=== PATIENT | female | born 1945 | race Caucasian/White ===

== ENCOUNTER 2021-01-31 14:38 | Emergency (ER) | payer MEDICARE, SELFPAY ==
--- NOTE | ~2021-01-31 | CT_ITS ---
EXAMINATION: CT cervical spine wo con DATE: 01/31/2021 16:34 INDICATION: Cervical pain between the shoulders TECHNIQUE: Computed tomography (CT) of the cervical spine was performed without intravenous contrast. Automated exposure control and iterative reconstruction technique were employed. The dose-length pro duct was 542.22 mGy-cm. COMPARISON: None FINDINGS: Straightening of the normal cervical lordosis. 2 mm anterolisthesis C4 on C5. Vertebral body heights are normal. No fractures. Mild disc height loss at C4-C5 and C7-T1 and moderate disc height loss at C 5-C6 and C6-C7 as well as at multiple levels in the upper thoracic spine. Posterior disc osteophyte c omplexes resulting in minimal to mild central canal stenosis at C5-C6, T1-T2 and T3-T4. Bilateral mod erate multilevel uncovertebral osteoarthritis and severe facet osteoarthritis in the cervical spine w hich contributes to moderate neural foraminal stenosis on the right at C3-C4 and C4-C5 and mild neura l foraminal stenosis at many of the remaining bilateral cervical neural foramina. Cervical soft tissu es are unremarkable. IMPRESSION: 1. Moderate cervical spondylosis. No acute osseous abnormality. Reviewed, dictated and finalized at location A.
--- NOTE | ~2021-01-31 | CT_ITS ---
EXAMINATION: CT brain wo con DATE: 01/31/2021 16:35 INDICATION: Headache TECHNIQUE: Computed tomography (CT) of the head was performed without intravenous contrast. Sagittal and coronal reconstructions were performed. The mA was adjusted according to patient size. Iterative reconstruction technique was employed. The dose-length product was 605.33 mGy-cm. COMPARISON: None FINDINGS: There is high attenuation subarachnoid hematoma involving portions of right sylvian fissure, the supr asellar cistern and prepontine cistern with right-sided predominance. No acute intracranial ischemic infarction or masses identified. Ventricles are normal and symmetric. The orbits, paranasal sinuses a nd mastoid air cells are normal. No fracture. IMPRESSION: 1. Subarachnoid hemorrhage extending from the right sylvian fissure to the suprasellar cistern and bi lateral prepontine cisterns with right-sided predominance. Dr. Villanueva discussed these findings with Dr. Orr at 4:38 PM. Reviewed, dictated and finalized at location A. IMPRESSION: 1. Subarachnoid hemorrhage extending from the right sylvian fissure to the supr asellar cistern and bilateral prepontine cisterns with right-sided predominance . Dr. Villanueva discussed these findings with Dr. Orr at 4:38 PM.
--- NOTE | ~2021-01-31 | CT_ITS ---
EXAMINATION: CTA chest abdomen pelvis DATE: 01/31/2021 16:35 INDICATION: Upper back pain TECHNIQUE: Computed tomographic angiography (CTA) of the chest, abdomen, and pelvis was performed wit hout and with 100 mL Omnipaque-350 intravenous contrast. Volume-rendered 3D-reconstructions of the ao rta and large arteries were constructed by the technologist on a separate workstation. Automated expo sure control and iterative reconstruction technique were employed. The dose-length product was 1380.8 2 mGy-cm. COMPARISON: None FINDINGS: CHEST: Thoracic aorta is normal in caliber with no dissection or significant atherosclerotic disease. Lungs are clear with no suspicious pulmonary nodules, pneumonia, pulmonary edema, pleural effusion or pneum othorax. Heart size is normal. No pericardial effusion. No pathologically enlarged thoracic lymphaden opathy. Moderate thoracic spondylosis. Abdomen and pelvis: Abdominal aorta is normal in caliber with no dissection or significant atherosclerotic disease. Diffu se hepatic steatosis. Cholecystectomy clips at the gallbladder fossa. Spleen, pancreas, bilateral adr enal glands and kidneys are normal. Bowels including the appendix are normal. Bladder is normal. The uterus is not identified and has likely been surgically resected. No free intraperitoneal gas or flui d. No pathologically enlarged abdominal or pelvic lymphadenopathy. 15 degrees lumbar levoscoliosis wi th severe spondylosis. 4 mm anterolisthesis L4 on L5. IMPRESSION: 1. No acute intrathoracic, abdominal or pelvic process. Specifically normal caliber thoracic and abdo kayli aorta with no dissection. 2. Diffuse hepatic steatosis. Reviewed, dictated and finalized at location A. IMPRESSION: 1. No acute intrathoracic, abdominal or pelvic process. Specifically normal antoinette iber thoracic and abdominal aorta with no dissection. 2. Diffuse hepatic steatosis.
[2021-01-31 14:45] VITALS: BP 155/88; PULSE 74; RESP 16; TEMP 36.9; O2SAT 98
--- NOTE | 2021-01-31 14:48 | ED.HA ---
HPI - Headache General Chief Complaint: Headache Stated Complaint: back and head pain Time Seen by Provider: 01/31/21 15:13 Source: patient Mode of arrival: ambulatory Limitations: no limitations History of Present Illness HPI Narrative: 75-year-old woman with a history rheumatoid arthritis comes in today complaining of back and head pain that started last night while she was trying to towel off her back. Patient states that she had an episode of vomiting afterwards. the pain is worse with movement. She states that she has had some long-standing or numbness in the right hand otherwise she has no weakness numbness or radiating pain. She denies falls and injuries. She has had no fever, sore throat cough or cold symptoms, sick contacts, prior similar symptoms, chest pain, abdominal pain, or photophobia. Patient states she takes a baby aspirin every morning; her last dose was yesterday (01/30) morning. MD elicited complaint: headache Onset (ago): hour(s) (17) Onset description: suddenly Location: occipital and neck Severity: severe Quality & Timing: aching and sharp Exacerbating factors: movement of head/neck Relieving factors: rest Context: occurred with exertion/activity Associated symptoms: vomiting Treatments prior to arrival: ibuprofen Related Data Home Medications Medication Instructions Recorded Confirmed alprazolam [Xanax] 0.25 mg PO TID PRN 01/31/21 01/31/21 hydrochlorothiazide 25 mg PO DAILY 01/31/21 01/31/21 meloxicam 15 mg PO DAILY 01/31/21 01/31/21 metoprolol succinate 50 mg PO DAILY 01/31/21 01/31/21 pantoprazole 40 mg PO QAM 01/31/21 01/31/21 venlafaxine 75 mg PO DAILY 01/31/21 01/31/21 Allergies Allergy/AdvReac Type Severity Reaction Status Date / Time No Known Allergies Allergy Verified 01/31/21 15:07 Review of Systems Review of Systems: All systems reviewed & are unremarkable except as noted in HPI and below Constitutional: Constitutional: Denies chills, Denies fever(s) and Denies weakness Eyes: Eyes: Denies change in vision and Denies photophobia ENT: Denies dysphagia, Denies nasal congestion and Denies sore throat Cardiovascular: Cardiovascular: Denies chest pain and Denies radiating jaw, neck or arm pain Respiratory: Respiratory: Denies cough, Denies dyspnea and Denies wheezing Gastrointestinal: Gastrointestinal: Denies abdominal pain, Denies diarrhea, Denies nausea and Reports vomiting Genitourinary: Genitourinary: Denies nocturia and Denies dysuria Musculoskeletal: Musculoskeletal: Reports back pain, Denies arthralgias and Denies joint swelling Integumentary/Breasts: Skin/Breast: Denies pruritus, Denies erythema and Denies rash Neurologic: Denies vertigo, Denies dizziness, Denies syncope and Reports numbness (Rt hand for 3 months) Hematologic/Lymphatic: Hematologic/Lymphatic: Denies easy bleeding and Denies easy bruising Allergic/Immunologic: Allergic/Immunologic: Denies lip swelling and Denies wheezing PMFSH Past Medical History Medical History HTN (hypertension) Migraine Rheumatoid arthritis Surgical History Surgical History History of hysterectomy S/P cholecystectomy Social History Social History (Updated 01/31/21 @ 15:34 by Barrington Orr MD) Smoking status: Current every day smoker Alcohol intake: never Substance use: never Living arrangements: with family Exam Const: General: alert Orientation/consciousness: patient oriented x3 Limitations: no limitations Other: moderate acute distress. HENMT: Head: normal to inspection Ears: external ears normal, TM's normal bilaterally and EAC's normal General nose exam: Normal nares present Face and sinus: normal facial exam Mouth: Yes moist mucous membranes abnormal Throat: posterior oropharynx normal Eyes: Conjunctivae: conjunctivae normal Pupils: Equal, round and reactive pupils presen
--- NOTE | 2021-01-31 15:20 | ECG_ITS ---
Measurements Intervals [place] Rate: 71 P: 19 [place]: 154 QRS: -11 QRSD: 88 T: 22 QT: 396 QTc: 432 Interpretive Statements SINUS RHYTHM BORDERLINE T WAVE ABNORMALITY- ANT/INF LEADS BORDERLINE ECG Electronically Signed On 02-01-2021 10:13:05 CDT by Gadiel Lua D.O.
[2021-01-31] MEDS: ONDANSETRON HCL ODT 4 MG TABLET PO (15:21)
[2021-01-31] MEDS: HYDROcodone/acetaminophen (*CRX) 5-325 MG TABLET 1 TAB PO (15:40)
[2021-01-31 15:48] LABS: Appearance Urine Clear (Clear); Bilirubin Urine Negative (Negative); Blood Urine 1+ (Negative); Glucose Urine UA Negative (Negative); Ketones Urine 1+ (Negative); Leukocyte Esterase Ur Negative LEU/UL (Negative); Nitrate Urine Negative (Negative); Protein Urine Negative (Negative); Urobilinogen Urine 0.2 mg/dL (0.2-1.0)
[2021-01-31 15:48] LABS: Basophils Absolute Auto 0.05 K/mm3 (0.00-0.10); Basophils Percent Auto 0.6 % (0.0-1.0); Eosinophils Absolute Auto 0.09 K/mm3 (0.02-0.50); Eosinophils Percent Auto 1.1 % (1.0-6.0); Hematocrit 41.9 % (35.0-42.0); Hemoglobin 14.5 g/dL (11.7-13.8); Immature Granulocyte Absolute 0.03 K/mm3 (0.00-0.00); Immature Granulocyte Percent A 0.4 % (0.0-0.0); Lymphocytes Absolute Auto 1.81 K/mm3 (1.10-4.50); Lymphocytes Percent Auto 21.9 % (18.0-42.0); Mean Corpuscular HGB Conc 34.6 g/dL (32.0-36.0); Mean Corpuscular Hemoglobin 30.9 pg (27.0-31.0); Mean Corpuscular Volume 89.3 fL (78.0-102.0); Mean Platelet Volume 12.2 fl (9.2-11.8); Monocytes Absolute Auto 0.68 K/mm3 (0.10-0.90); Monocytes Percent Auto 8.2 % (2.0-11.0); Neutrophils Absolute Auto 5.6 K/mm3 (1.7-7.2); Neutrophils Percent Auto 67.8 % (50.0-70.0); Platelet Count Result 172 K/mm3 (150-420); Red Blood Count 4.69 M/mm3 (4.20-5.40); Red Cell Distribution Width 12.9 % (11.6-14.4); White Blood Count 8.3 K/mm3 (4.8-10.8)
[2021-01-31 15:50] LABS: Add Urine Microscopic? YES; Color Urine Light Yellow (Yellow)
[2021-01-31 16:02] LABS: Bacteria Urine Trace /hpf; RBC Urine 0-2 /hpf (0-2); Squamous Epithelial Cell Urine Few /hpf (Few); WBC Urine 0-3 /hpf (0-3)
[2021-01-31 16:02] LABS: INR 1.1; Partial Thromboplastin Time 26.8 SEC (23.90-30.70); Prothrombin Time 11.3 Seconds (9.50-12.10)
[2021-01-31 16:03] LABS: Alanine Aminotransferase 46 U/L (14-59); Albumin Level 3.6 g/dL (3.4-5.0); Alkaline Phosphatase 71 U/L (46-116); Anion Gap 10 mmol/L (8-16); Aspartate Amino Transferase 32 U/L (15-37); Bilirubin,Total 0.9 mg/dL (0.00-1.00); Blood Urea Nitrogen 17 mg/dL (7-18); CRP 0.5 mg/dL (0.0-0.9); Carbon Dioxide 27 mmol/L (21-32); Chloride 104 mmol/L (98-108); Estimated CRCL calculation 52 ml/min; Estimated Glomerular Filt Rate > 60; Glucose 99 mg/dL (70-99); Osmolality Calculated 293 mOsm/kg (285-295); Potassium 3.2 mmol/L (3.5-5.1); Sodium 141 mmol/L (136-145); Total Protein 7.5 g/dL (6.4-8.2)
[2021-01-31 16:06] LABS: Lactic Acid Reflex 1.2 mmol/L (0.4-2.0)
[2021-01-31] MEDS: LORazepam INJ (*CRX) 2 MG/ML VIAL 0.5 MG IV PUSH (17:00)
--- NOTE | 2021-01-31 17:00 | PC.NURSE ---
[id number] [facility] transfer line passenger service representative, azeem, contacted at this time. Azeem spoke erp dr. mcdaniel. awaiting call back.
--- NOTE | 2021-01-31 17:23 | PC.NURSE ---
akhil [facility] neurologist called back at this time. spoke with erp
[2021-01-31] MEDS: levETIRAcetam 500MG/NACL 100ML 500 MG/100 ML BAG 400 MG IVPB (17:38)
--- NOTE | 2021-01-31 18:23 | PC.NURSE ---
azeem [facility] transfer contacted rn requesting additional information. Azeem states pt has been accepted and will have a bed for her. azeem requesting rapid covid swab prior to bed placement. erp informed.
[2021-01-31 18:59] LABS: SARS-CoV-2 Ag Negative (Negative)
--- NOTE | 2021-01-31 20:13 | PC.NURSE ---
1999 azeem [facility] transfer line rep contacted rn. room 9402 provided. 2004 telephone report provided to rene multicultural manager. [facility] contacted for transfer at 2011. awaiting arrival
[2021-01-31 20:40] VITALS: BP 144/94; PULSE 76; RESP 17; O2SAT 95
== END 2021-01-31 20:40 | disposition short-term general hospital (02) ==
PROVIDERS: Emergency Provider Emergency Medicine
DX: I60.9 Nontraumatic subarachnoid hemorrhage, unspecified (principal); Z20.822 Contact with and (suspected) exposure to COVID-19; I10 Essential (primary) hypertension; F17.200 Nicotine dependence, unspecified, uncomplicated
CPT/HCPCS: 36415; 70450; 71275; 72125; 74174; 80053; 81001; 83605; 85025; 85610; 85730; 86140; 87040; 87426; 93005; 96374; 96375; 99285; A9270; C9803; J1953; J2060; Q9967

== ENCOUNTER 2023-03-26 15:20 | Emergency (ER) | payer MEDICARE, SELFPAY ==
--- NOTE | 2023-03-26 15:49 | ED.NAVMDI ---
HPI - Nausea/Vomiting/Diarrhea General Chief complaint: Nausea/Vomiting/Diarrhea Stated complaint: diarrhea; nausea Time Seen by Provider: 03/26/23 15:48 Source: patient Mode of arrival: ambulatory Limitations: no limitations History of Present Illness HPI Narrative: 77-year-old female with a history of hypertension, migraine, rheumatoid arthritis presents to the ER with a 3 day history of -- nausea with multiple episodes of vomiting -- multiple loose stools. Had 3 loose stools since morning. No abdominal pain no fever MD elicited complaint: nausea, vomiting and diarrhea Onset (ago): day(s) ( started 3 days ago) Description of vomiting: watery Associated nausea: Yes Associated abdominal pain: No Location of pain: none Exacerbating factors: none Relieving factors: none Treatment prior to arrival: immodium Related Data Home Medications Medication Instructions Recorded Confirmed alprazolam 0.25 mg tablet (Xanax) 0.25 mg PO TID PRN Anxiety 01/31/21 03/26/23 hydrochlorothiazide 25 mg tablet 25 mg PO DAILY 01/31/21 03/26/23 metoprolol succinate 50 mg 50 mg PO DAILY 01/31/21 03/26/23 tablet,extended release 24 hr pantoprazole 40 mg tablet,delayed 40 mg PO QAM 01/31/21 03/26/23 release venlafaxine 75 mg capsule,extended 75 mg PO DAILY 01/31/21 03/26/23 release 24 hr hydrocodone 5 mg-acetaminophen 325 1 tablet PO Q8H 03/26/23 03/26/23 mg tablet potassium chloride 20 mEq 20 meq PO TID 03/26/23 03/26/23 tablet,extended release(part/cryst) pravastatin 20 mg tablet 20 mg PO DAILY 03/26/23 03/26/23 valsartan 160 mg tablet 160 mg PO DAILY 03/26/23 03/26/23 Allergies Allergy/AdvReac Type Severity Reaction Status Date / Time ondansetron [From Zofran] AdvReac Headache Verified 03/26/23 16:13 Review of Systems Review of Systems: All systems reviewed & are unremarkable except as noted in HPI and below Constitutional: Constitutional: Reports as per HPI and Reports no additional constitutional complaints Eyes: Eyes: Reports as per HPI and Reports no additional eye complaints ENT: Reports system reviewed and no additional complaints, except as documented and Reports as per HPI Cardiovascular: Cardiovascular: Reports as per HPI and Reports no additional cardiovascular complaints Respiratory: Respiratory: Reports as per HPI and Reports no additional respiratory complaints Gastrointestinal: Gastrointestinal: Reports as per HPI, Reports no additional gastrointestinal complaints, Reports diarrhea, Reports nausea and Reports vomiting Genitourinary: Genitourinary: Reports no additional female genitourinary complaints and Reports as per HPI Musculoskeletal: Musculoskeletal: Reports no additional musculoskeletal complaints and Reports as per HPI Integumentary/Breasts: Skin/Breast: Reports system reviewed and no additional complaints, except as docu and Reports as per HPI Neurologic: Reports system reviewed and no additional complaints, except as documented and Reports as per HPI Psychiatric: Psychiatric: Reports no additional psychiatric complaints and Reports as per HPI Endocrine: Endocrine: Reports no additional endocrine complaints and Reports as per HPI Hematologic/Lymphatic: Hematologic/Lymphatic: Reports no additional hematologic/lymphatic complaints and Reports as per HPI Allergic/Immunologic: Allergic/Immunologic: Reports no additional allergic/immunologic complaints and Reports as per HPI PMFSH Past Medical History Medical History HTN (hypertension) Migraine Rheumatoid arthritis Surgical History Surgical History History of hysterectomy S/P cholecystectomy Social History Social History Smoking status: Current every day smoker Alcohol intake: never Substance use: never Living arrangements: with family Exam Const: General
[2023-03-26 15:50] VITALS: BP 152/81; PULSE 99; RESP 20; TEMP 37.2; O2SAT 94
[2023-03-26 15:52] VITALS: BP 152/81; PULSE 104; RESP 20; TEMP 37.2; O2SAT 100
[2023-03-26 16:38] LABS: Basophils Absolute Auto 0.04 K/mm3 (0.00-0.10); Basophils Percent Auto 0.3 % (0.0-1.0); Eosinophils Absolute Auto 0.07 K/mm3 (0.02-0.50); Eosinophils Percent Auto 0.6 % (1.0-6.0); Hematocrit 44.4 % (35.0-42.0); Hemoglobin 15.3 g/dL (11.7-13.8); Immature Granulocyte Absolute 0.06 K/mm3 (0.00-0.00); Immature Granulocyte Percent A 0.5 % (0.0-0.0); Lymphocytes Absolute Auto 0.73 K/mm3 (1.10-4.50); Mean Corpuscular HGB Conc 34.5 g/dL (32.0-36.0); Mean Corpuscular Hemoglobin 30.7 pg (27.0-31.0); Mean Corpuscular Volume 89.2 fL (78.0-102.0); Mean Platelet Volume 11.7 fl (9.2-11.8); Monocytes Absolute Auto 0.85 K/mm3 (0.10-0.90); Neutrophils Absolute Auto 10.4 K/mm3 (1.7-7.2); Neutrophils Percent Auto 85.6 % (50.0-70.0); Platelet Count Result 145 K/mm3 (150-420); Red Blood Count 4.98 M/mm3 (4.20-5.40); White Blood Count 12.2 K/mm3 (4.8-10.8)
[2023-03-26] MEDS: LACTATED RINGERS 1,000 ML 999 ML IV CONT (16:43)
[2023-03-26] MEDS: PROCHLORPERAZINE EDISYLATE 10 MG/2 ML VIAL IV PUSH (16:44)
[2023-03-26 16:50] LABS: INR 1.1; Prothrombin Time 11.8 Seconds (9.50-12.10)
[2023-03-26 16:56] LABS: Alanine Aminotransferase 22 U/L (14-59); Albumin Level 3.1 g/dL (3.4-5.0); Alkaline Phosphatase 66 U/L (46-116); Anion Gap 11 mmol/L (8-16); Aspartate Amino Transferase 21 U/L (15-37); Bilirubin,Total 0.6 mg/dL (0.00-1.00); Blood Urea Nitrogen 14 mg/dL (7-18); Calcium 8.7 mg/dL (8.5-10.1); Carbon Dioxide 26 mmol/L (21-32); Chloride 97 mmol/L (98-108); Estimated CRCL calculation 41 ml/min; Estimated Glomerular Filt Rate 52; Glucose 111 mg/dL (70-99); Lactic Acid Reflex 2.2 mmol/L (0.4-2.0); Lipase 18 U/L (16-77); Magnesium 1.6 mg/dL (1.8-2.4); Osmolality Calculated 279 mOsm/kg (285-295); Potassium 2.7 mmol/L (3.5-5.1); Sodium 134 mmol/L (136-145); Total Protein 7.6 g/dL (6.4-8.2); Troponin I 9.6 ng/L (0.00-60.4)
[2023-03-26] MEDS: SODIUM CHLORIDE 0.9% IV 1,000 ML 999 ML IV CONT (18:25)
[2023-03-26] MEDS: SPIRONOLACTONE 25 MG TABLET PO (18:26)
[2023-03-26] MEDS: MAGNESIUM SULF 2 GM/WATER 50ML 2 GM/50 ML BAG IVPB (18:26)
[2023-03-26 18:30] VITALS: BP 140/69; PULSE 88; O2SAT 99
--- NOTE | 2023-03-26 18:35 | PC.NURSE ---
magnesium is infusing at this time. RN will start potassium when finished.
[2023-03-26 19:30] VITALS: BP 149/72; PULSE 85; RESP 16; O2SAT 94
[2023-03-26 19:35] LABS: Reflex Lactic Acid Yes or No Add Lactic
[2023-03-26] MEDS: KCL 20 MEQ/SW 100 ML 100 ML 50 MEQ IVPB (19:42)
[2023-03-26] MEDS: POTASSIUM BICARBONATE 25 MEQ TABEF 50 MEQ PO (19:51)
--- NOTE | 2023-03-26 20:03 | PC.NURSE ---
194-CUTTER FINISHER SPOKE WITH DR REES REGARDING ADD-ON FOR REPEAT LACTIC TIME OF DRAW. DR REES ADVISED TO BE DRAWN AFTER PT IVF 0.9% NS IS COMPLETE. IVF CURRENTLY INFUSING TO GRAVITY APPROX 400CC COMPLETE.
--- NOTE | 2023-03-26 20:09 | PC.NURSE ---
2007-MICROECONOMICS PROFESSOR AT BEDSIDE FOR ALARMING IV PUMP. IV SITE ASSESSED AND IV PUMP ISSUED FIXED. JHONY KWAN NOTED AT BEDSIDE. MICROECONOMICS PROFESSOR ADVISED PHYSICIAN WOULD LIKE LACTIC TO BE DRAWN AFTER PT IVF COMPLETE. JHONY KWAN ADVISED PHYSICIAN SPOKE WITH HER AND ADVISED TO GO AHEAD WITH REPEAT LACTIC AND POTASSIUM. MICROECONOMICS PROFESSOR ACKNOWLEDGED. MICROECONOMICS PROFESSOR SPOKE WITH PHYSICIAN AND PHYSICIAN CONFIRMS FOR STATED REPEAT LABS.
[2023-03-26 20:40] VITALS: BP 147/62; PULSE 96; RESP 20
[2023-03-26 20:51] LABS: Potassium 3.5 mmol/L (3.5-5.1)
[2023-03-26 21:04] LABS: Lactic Acid 1.4 mmol/L (0.4-2.0)
--- NOTE | 2023-03-26 21:17 | PC.NURSE ---
2051-PHP DEVELOPER SPOKE WITH PT DAUGHTER, MARCO ([phone]) VIA PHONE AT PT BEDSIDE TO PROVIDE UPDATE.
[2023-03-26 21:30] VITALS: BP 145/68; PULSE 94; RESP 20; O2SAT 95
--- NOTE | 2023-03-26 21:39 | PC.NURSE ---
2139-PHYSICIAN AT BEDSIDE SPEAKING WITH PT REGARDING DISCHARGE PLAN OF CARE. FINE ARTS MODEL TO CONTACT PT DAUGHTER FOR TRANSPORT HOME.
--- NOTE | 2023-03-26 21:41 | PC.NURSE ---
2140-MACHINE CHOCOLATE MOLDER ATTEMPTED CONTACT WITH PT DAUGHTER, UNSUCCESSFUL AT THIS TIME. MACHINE CHOCOLATE MOLDER TO TRY AGAIN SHORTLY.
--- NOTE | 2023-03-26 22:15 | PC.NURSE ---
2210-RESIDENTIAL SERVICE TECHNICIAN MADE AWARE BY FRANNY RN, PT DAUGHTER CALLED BACK AND ADVISED PT READY FOR DISCHARGE AND PET HOUSE SITTER. DAUGHTER ON THE WAY.
== END 2023-03-26 22:50 | disposition home or self-care (01) ==
PROVIDERS: Emergency Provider Internal Medicine Critical Care Medicine
DX: K52.9 Noninfective gastroenteritis and colitis, unspecified (principal); E87.8 Other disorders of electrolyte and fluid balance, not elsewhere classified; I10 Essential (primary) hypertension; M06.9 Rheumatoid arthritis, unspecified; F17.200 Nicotine dependence, unspecified, uncomplicated; Z79.891 Long term (current) use of opiate analgesic; Z79.899 Other long term (current) drug therapy; Z90.49 Acquired absence of other specified parts of digestive tract
CPT/HCPCS: 36415; 80053; 83605; 83690; 83735; 84132; 84484; 85025; 85610; 96361; 96365; 96366; 96367; 96375; 99284; A9270; J0780; J3475; J3480; J7030; J7120

== ENCOUNTER 2023-03-28 15:35 | Emergency (ER) | payer MEDICARE, SELFPAY ==
[2023-03-28 15:56] VITALS: BP 120/73; PULSE 90; RESP 20; TEMP 36.5; O2SAT 100
--- NOTE | 2023-03-28 15:56 | ED.FEMALEGU ---
HPI - Female Genitourinary General Chief complaint: Urogenital-Female Stated complaint: Urinary Problem Time Seen by Provider: 03/28/23 15:56 Source: patient Mode of arrival: ambulatory Limitations: no limitations History of Present Illness HPI Narrative: 77-year-old female presents with complaint of urinary frequency, dysuria, incontinence since yesterday. Afebrile. No abdominal or back pain. Patient seen at ER yesterday for nausea vomiting diarrhea. Was given Zofran and told to take Imodium. All systems reviewed and negative except as noted above. Related Data Home Medications Medication Instructions Recorded Confirmed alprazolam 0.25 mg tablet (Xanax) 0.25 mg PO TID PRN Anxiety 01/31/21 03/28/23 hydrochlorothiazide 25 mg tablet 25 mg PO DAILY 01/31/21 03/28/23 metoprolol succinate 50 mg 50 mg PO DAILY 01/31/21 03/28/23 tablet,extended release 24 hr pantoprazole 40 mg tablet,delayed 40 mg PO QAM 01/31/21 03/28/23 release venlafaxine 75 mg capsule,extended 75 mg PO DAILY 01/31/21 03/26/23 release 24 hr hydrocodone 5 mg-acetaminophen 325 1 tablet PO Q8H 03/26/23 03/28/23 mg tablet potassium chloride 20 mEq 20 meq PO TID 03/26/23 03/28/23 tablet,extended release(part/cryst) pravastatin 20 mg tablet 20 mg PO DAILY 03/26/23 03/28/23 valsartan 160 mg tablet 160 mg PO DAILY 03/26/23 03/26/23 Allergies Allergy/AdvReac Type Severity Reaction Status Date / Time ondansetron [From Zofran] AdvReac Headache Verified 03/28/23 15:41 Review of Systems Review of Systems: CONSTITUTIONAL: Denies fever, chills, or sweats. EYES: Denies visual changes, redness, or discharge. ENT: Denies rhinorrhea, congestion, sore throat, or otalgia. CARDIOVASCULAR: Denies chest pain, palpitations, or edema. RESPIRATORY: Denies cough or dyspnea. GASTROINTESTINAL: Denies abdominal pain, nausea, vomiting, or diarrhea. GENITOURINARY: Reports dysuria, frequency, incontinence. Denies hematuria. SKIN: Denies rash or itching. MUSCULOSKELETAL: Denies back pain, joint pain, or myalgia. NEUROLOGIC: Denies headache, numbness, or weakness. PSYCHIATRIC: Denies anxiety or depression. All other systems reviewed are negative, except as documented in HPI. [facility] Past Medical History Medical History HTN (hypertension) Migraine Rheumatoid arthritis Surgical History Surgical History History of hysterectomy S/P cholecystectomy Social History Social History Smoking status: Current every day smoker Alcohol intake: never Substance use: never Living arrangements: with family Comments At time of signature, agree with nursing past medical, surgical, social and family history. There is no relevant family history pertinent to the presenting complaint. Exam Narrative: GENERAL: This is a well-nourished, well-developed patient, in no apparent distress. HEAD: normocephalic, atraumatic. EYES: PERRL. Sclera clear/white. Vision is grossly intact. EARS: External ears normal NOSE: External nose normal NECK: Neck supple, non-tender without lymphadenopathy, masses or thyromegaly. CARDIOVASCULAR: Regular rate and rhythm without murmurs, gallops, or rubs. RESPIRATORY: Clear to auscultation. Breath sounds equal bilaterally. No wheezes, rales, or rhonchi. SKIN: warm, Dry, intact with no suspicious lesions or rash, good texture and turgor. NEURO: awake, alert, and oriented to person, place and time. There were no obvious focal neurologic abnormalities. EXTREMITIES: No joint tenderness, effusion, or edema noted. Course Course Level of Care: Express Care Visit Vital Signs Vital signs: Reviewed MDM - Female Genitourinary MDM Narrative Medical decision making narrative: Patient is aware of diagnosis, understands and agrees to treatment plan. Anticipatory guidance giv
[2023-03-28 16:05] VITALS: BP 120/73; PULSE 90; RESP 20; TEMP 36.5; O2SAT 100
== END 2023-03-28 16:27 | disposition home or self-care (01) ==
PROVIDERS: Emergency Provider Nurse Practitioner Family; PCP Family Medicine
DX: N39.0 Urinary tract infection, site not specified (principal); I10 Essential (primary) hypertension; M06.9 Rheumatoid arthritis, unspecified; F17.200 Nicotine dependence, unspecified, uncomplicated
CPT/HCPCS: 81003; 87077; 87086; 87186; 99213; G0463

== ENCOUNTER 2023-07-04 15:04 | Emergency (ER) | payer MEDICARE, SELFPAY ==
--- NOTE | ~2023-07-04 | XR_ITS ---
EXAMINATION: XR knee LT 3V, XR tibia fibula LT 2V DATE: 07/04/2023 16:17 INDICATION: Left lower leg pain post fall TECHNIQUE: 1. Anteroposterior, oblique and crosstable lateral views of the left knee were obtained 2. AP and lateral views of the left tibia and fibula were obtained. COMPARISON: None. FINDINGS: Old fracture at the junction of the mid to distal left tibial diaphysis which has healed with minimal displacement and anterior angulation. Alignment is otherwise normal. No acute fracture. Tricompartme ntal osteoarthritis at the left knee with small marginal osteophytes in the medial lateral compartmen ts and moderate joint space narrowing with more prominent osteophytes at the patellofemoral compartme nt. 1.5 similar ossification likely representing a loose osteochondral body at the suprapatellar pouc h. No left knee joint effusion. Additional mild polyarticular osteoarthritis at the first metatarsoph alangeal joint, left ankle and several additional joints in the mid and hindfoot. Moderate-sized Achi lles and plantar calcaneal spurs. No ankle joint effusion. IMPRESSION: 1. Old healed left tibial diaphyseal fracture with minimal residual deformity. No acute osseous abnor mality. 2. Moderate patellofemoral compartment predominant tricompartmental osteoarthritis at the left knee. 3. Additional mild polyarticular osteoarthritis at the left foot and ankle. Reviewed, dictated and finalized at location A. DRIER IMPRESSION: 1. Old healed left tibial diaphyseal fracture with minimal residual deformity. No acute osseous abnormality. 2. Moderate patellofemoral compartment predominant tricompartmental osteoarthri tis at the left knee. 3. Additional mild polyarticular osteoarthritis at the left foot and ankle.
[2023-07-04 15:05] VITALS: BP 163/89; PULSE 96; RESP 18; TEMP 36.8; O2SAT 98
--- NOTE | 2023-07-04 15:11 | ED.EXTPRO ---
HPI - Extremity Problem General Chief complaint: Extremity Problem,Nontraumatic Stated complaint: LEFT ANKLE PAIN Time Seen by Provider: 07/04/23 15:09 History of Present Illness HPI Narrative: Patient is a 77-year-old female with history of RA, HTN, Migraines here with left knee pain. Patient states that she has had multiple falls over the last few months has been following with her primary care doctor regarding this. She does not remember a specific fall in which she could have injured her left knee. She states for the last 1 week she has been having pain on the lateral and posterior aspect of her left knee. This caused some difficulty with walking due to pain. She has not attempted any interventions at home. She has not seen her primary care doctor for this. She denies fever, chills. She denies leg swelling. No history of PE/DVT. No recent travel, surgery, prolonged immobility. Related Data Home Medications Medication Instructions Recorded Confirmed alprazolam 0.25 mg tablet (Xanax) 0.25 mg PO TID PRN Anxiety 01/31/21 07/04/23 hydrochlorothiazide 25 mg tablet 25 mg PO DAILY 01/31/21 07/04/23 metoprolol succinate 50 mg 50 mg PO DAILY 01/31/21 07/04/23 tablet,extended release 24 hr pantoprazole 40 mg tablet,delayed 40 mg PO QAM 01/31/21 07/04/23 release venlafaxine 75 mg capsule,extended 75 mg PO DAILY 01/31/21 07/04/23 release 24 hr hydrocodone 5 mg-acetaminophen 325 1 tablet PO Q8H 03/26/23 07/04/23 mg tablet potassium chloride 20 mEq 20 meq PO TID 03/26/23 07/04/23 tablet,extended release(part/cryst) pravastatin 20 mg tablet 20 mg PO DAILY 03/26/23 07/04/23 valsartan 160 mg tablet 160 mg PO DAILY 03/26/23 07/04/23 Allergies Allergy/AdvReac Type Severity Reaction Status Date / Time ondansetron [From Zofran] AdvReac Headache Verified 03/28/23 15:41 Review of Systems Review of Systems: All systems reviewed & are unremarkable except as noted in HPI and below PMFSH Past Medical History Medical History HTN (hypertension) Migraine Rheumatoid arthritis Surgical History Surgical History History of hysterectomy S/P cholecystectomy Social History Social History Smoking status: Current every day smoker Alcohol intake: never Substance use: never Living arrangements: with family Exam Narrative: GENERAL: Well-appearing, well-nourished, and in no acute distress. HEAD: Normocephalic, atraumatic. EYES: PERRLA and EOMI. ENT: Nares clear. Mucous membranes moist. NECK: Supple. CHEST: Clear to auscultation. No respiratory distress. HEART: Regular rate and rhythm. Normal peripheral pulses. ABDOMEN: Soft, nontender, nondistended. EXTREMITIES: Normal range of motion. Tenderness to the lateral aspect of the left knee over the fibular head. No effusion. Mild calf tenderness. No edema present. Strong DP pulse. Ankle non tender with normal ROM. SKIN: Warm, dry, no rash. NEURO: No focal deficits. Alert and oriented x3. PSYCH: Normal mood and affect. Course Course Emergency Course: Chart review performed. Prior notes reviewed in our system. She has history of HTN, migraine, RA. Triage vitals normal. Patient seen evaluated, nontoxic appearing. Differential includes musculoskeletal cause of pain including fracture or internal ligamentous injury of the knee. Much less likely on my differential is a DVT. Unfortunately, at this hour, we are unable to perform a doppler ultrasound. Will do d-dimer and discuss risks of anticoagulation with scheduled outpatient ultrasound. XR shows old healed left tibial diaphyseal fracture with minimal residual deformity. Arthritis of left knee. Age corrected D-dimer is negative. The results of pertinent diagnostic studies and exam findings were discussed. The patient?s provisional diagnosis and plan
[2023-07-04 16:37] LABS: D Dimer 0.82 mg/L (0.19-0.50)
--- NOTE | 2023-07-04 17:03 | PC.NURSE ---
PT IS SITTING ON STRETCHER WITH DAUGHTER AT BEDSIDE. NAD NOTED. PT IS AWAITING ERP DECISION AT THIS TIME. WILL CONTINUE TO MONITOR.
[2023-07-04 18:00] VITALS: BP 149/82; PULSE 75; RESP 18; O2SAT 99
== END 2023-07-04 18:00 | disposition home or self-care (01) ==
PROVIDERS: Emergency Provider Student in an Organized Health Care Education/Training Program; PCP Family Medicine
DX: M25.572 Pain in left ankle and joints of left foot (principal); I10 Essential (primary) hypertension; M06.9 Rheumatoid arthritis, unspecified; F17.200 Nicotine dependence, unspecified, uncomplicated; Z79.891 Long term (current) use of opiate analgesic; Z79.899 Other long term (current) drug therapy
CPT/HCPCS: 36415; 73562; 73590; 85380; 99284

== ENCOUNTER 2024-01-16 13:06 | Emergency (ER) | payer MEDICARE, SELFPAY ==
[2024-01-16 13:12] VITALS: BP 143/75; PULSE 62; RESP 20; TEMP 36.4; O2SAT 100
--- NOTE | 2024-01-16 13:50 | ED.GENADULT ---
HPI - General Adult General Chief complaint: Upper Respiratory Infection Stated complaint: sore throat Source: patient and family Mode of arrival: ambulatory Limitations: no limitations History of Present Illness HPI narrative: Patient presents for evaluation of sore throat and cough for the last 3 days. No fever, chills, nausea, vomiting, shortness of breath. Her daughter and grandson both recently tested positive for strep on 2 separate occasions. All 3 individuals live in the same household. Patient is not taking any medication to assist with her symptoms. She does not smoke. Related Data Home Medications Medication Instructions Recorded Confirmed alprazolam 0.25 mg tablet (Xanax) 0.25 mg PO TID PRN Anxiety 01/31/21 01/16/24 hydrochlorothiazide 25 mg tablet 25 mg PO DAILY 01/31/21 01/16/24 metoprolol succinate 50 mg 50 mg PO DAILY 01/31/21 01/16/24 tablet,extended release 24 hr pantoprazole 40 mg tablet,delayed 40 mg PO QAM 01/31/21 01/16/24 release venlafaxine 75 mg capsule,extended 75 mg PO DAILY 01/31/21 01/16/24 release 24 hr hydrocodone 5 mg-acetaminophen 325 1 tablet PO Q8H 03/26/23 01/16/24 mg tablet potassium chloride 20 mEq 20 meq PO TID 03/26/23 01/16/24 tablet,extended release(part/cryst) pravastatin 20 mg tablet 20 mg PO DAILY 03/26/23 01/16/24 valsartan 160 mg tablet 160 mg PO DAILY 03/26/23 01/16/24 Allergies Allergy/AdvReac Type Severity Reaction Status Date / Time ondansetron [From Zofran] AdvReac Headache Verified 01/16/24 13:34 Review of Systems Review of Systems: CONSTITUTIONAL: Denies fever, chills, or sweats. EYES: Denies visual changes, redness, or discharge. ENT: Reports sore throat. Denies rhinorrhea, congestion or otalgia CARDIOVASCULAR: Denies chest pain, palpitations, or edema. RESPIRATORY: Reports cough. Denies dyspnea. GASTROINTESTINAL: Denies abdominal pain, nausea, vomiting, or diarrhea. GENITOURINARY: Denies dysuria or hematuria. SKIN: Denies rash or itching. MUSCULOSKELETAL: Denies back pain, joint pain, or myalgia. NEUROLOGIC: Denies headache, numbness, dizziness, or weakness. PSYCHIATRIC: Denies anxiety or depression. [facility] Past Medical History Medical History HTN (hypertension) Migraine Rheumatoid arthritis Surgical History Surgical History History of hysterectomy S/P cholecystectomy Family History Family History (Updated 01/16/24 @ 13:51 by EVARISTO Alvarado, ) Mother Unknown family medical history Social History Social History Alcohol intake: never Substance use: never Living arrangements: with family Gender identity (if verbalized by the patient): Female Spiritual care concerns: No Exam Narrative: GENERAL: Well-appearing, well-nourished, and in no acute distress. HEAD: Normocephalic, atraumatic. EYES: PERRLA and EOMI. ENT: Nares clear, no rhinorrhea or epistaxis. Mucous membranes moist. Oropharynx without tonsillar hypertrophy exudate or other lesions. Bilateral TMs pearly jordan nonbulging NECK: Supple. No adenopathy or masses. No carotid bruits or JVD CHEST: Clear to auscultation. No respiratory distress. No wheezes rales or rhonchi HEART: Regular rate and rhythm. No murmur heard. Normal peripheral pulses. ABDOMEN: Soft, nontender, nondistended, normal active bowel sounds. EXTREMITIES: Normal range of motion. No edema. SKIN: Warm, dry, no rash. NEURO: No focal deficits. Alert and oriented x3. PSYCH: Normal mood and affect. Course Course Emergency Course: This is a 78-year-old female who presented for evaluation of sore throat and cough. Strep positive. Will treat with amoxicillin. Increase hydration. [id number] agents for symptom management. Follow up with primary provider. Go to the ER for worsening symptoms.
== END 2024-01-16 13:50 | disposition home or self-care (01) ==
PROVIDERS: Emergency Provider Nurse Practitioner; PCP Family Medicine
DX: J02.0 Streptococcal pharyngitis (principal); I10 Essential (primary) hypertension; M06.9 Rheumatoid arthritis, unspecified
CPT/HCPCS: 87880; 99213; G0463

== ENCOUNTER 2024-06-24 12:57 | Emergency (ER) | payer MEDICARE, SELFPAY ==
--- NOTE | ~2024-06-24 | XR_ITS ---
EXAMINATION: XR lumbar spine 2-3V DATE: 06/24/2024 13:27 INDICATION: Right-sided low back pain post fall TECHNIQUE: Anteroposterior and lateral views of the lumbar spine, and cone-down lateral view of the l umbosacral junction were obtained. COMPARISON: 01/31/2021 FINDINGS: 22 degrees lumbar levorotoscoliosis. A millimeter anterolisthesis L4 on L5. Vertebral body heights ar e normal. Severe disc height loss at L4-L5, L5-S1 and at the right side of L2-L3. Moderate disc heigh t loss at L3-L4 and mild disc height loss at T11-T12 and T12-L1. There is additional multilevel moder ate to severe disc height loss in the more cephalad lower thoracic spine. Severe lumbar facet osteoar thritis on the right at L2-L3 through L5-S1 and L3-L4 through L5-S1 on the left. Moderate bilateral s acroiliac osteoarthritis. Cholecystectomy clips in right upper quadrant. IMPRESSION: 1. Lumbar levoscoliosis with severe lumbar and moderate to severe lower thoracic spondylosis. Reviewed, dictated and finalized at location A. METRY NURSE IMPRESSION: 1. Lumbar levoscoliosis with severe lumbar and moderate to severe lower thoraci c spondylosis.
[2024-06-24 13:00] VITALS: BP 140/64; PULSE 81; RESP 18; TEMP 36.6; O2SAT 97
--- NOTE | 2024-06-24 13:04 | ED_ITS ---
HPI - Back Pain/Injury General Chief Complaint: Back Pain/Injury Stated Complaint: fall/back pain Time Seen by Provider: 06/24/24 13:03 Source: patient Mode of arrival: ambulatory Limitations: no limitations History of Present Illness HPI Narrative: Patient is a 78-year-old female with right lower back pain after falling on the floor air grate from ground level fall. No head or neck injury. No other injuries. She specifically has pain of the right lower back. She has rheumatoid arthritis. no bottom pain or leg pains. No shooting pains. MD elicited complaint: back pain and back injury Pertinent past history: prior back pain and recent trauma Onset (ago): hour(s) (1) Timing: constant Severity: moderate Pain scale (0-10): 5 Similar Symptoms Previously: Yes Quality: sharp and spasming Location: lumbar spine Radiation: none Exacerbating factors: movement and walking Relieving factors: immobilization Context: other ( Patient was using her walker and tripped over a floor object from ground level fall onto her lower back) Associated symptoms: denies other symptoms Treatments prior to arrival: acetaminophen and prescription analgesics Related Data Home Medications Medication Instructions Recorded Confirmed hydrochlorothiazide 25 mg tablet 25 mg PO DAILY 01/31/21 06/24/24 metoprolol succinate 50 mg 50 mg PO DAILY 01/31/21 06/24/24 tablet,extended release 24 hr hydrocodone 5 mg-acetaminophen 325 1 tablet PO Q8H 03/26/23 06/24/24 mg tablet potassium chloride 20 mEq 20 meq PO TID 03/26/23 06/24/24 tablet,extended release(part/cryst) pravastatin 20 mg tablet 20 mg PO DAILY 03/26/23 06/24/24 valsartan 160 mg tablet 160 mg PO DAILY 03/26/23 06/24/24 aspirin 81 mg tablet 81 mg PO DAILY 06/24/24 06/24/24 hydroxyzine HCl 25 mg tablet 26 mg PO Q6-12H PRN Anxiety 06/24/24 06/24/24 Allergies Allergy/AdvReac Type Severity Reaction Status Date / Time ondansetron [From Zofran] AdvReac Headache Verified 06/24/24 13:05 Review of Systems Review of Systems: All systems reviewed & are unremarkable except as noted in HPI and below Constitutional: Constitutional: Reports no additional constitutional complaints Eyes: Eyes: Reports no additional eye complaints ENT: Reports system reviewed and no additional complaints, except as documented Cardiovascular: Cardiovascular: Reports no additional cardiovascular complaints Respiratory: Respiratory: Reports no additional respiratory complaints Gastrointestinal: Gastrointestinal: Reports no additional gastrointestinal complaints Genitourinary: Genitourinary: Reports no additional female genitourinary complaints Musculoskeletal: Musculoskeletal: Reports no additional musculoskeletal complaints Integumentary/Breasts: Skin/Breast: Reports system reviewed and no additional complaints, except as docu Neurologic: Reports system reviewed and no additional complaints, except as documented Psychiatric: Psychiatric: Reports no additional psychiatric complaints Endocrine: Endocrine: Reports no additional endocrine complaints Hematologic/Lymphatic: Hematologic/Lymphatic: Reports no additional hematologic/lymphatic complaints Allergic/Immunologic: Allergic/Immunologic: Reports no additional allergic/immunologic complaints PMFSH Past Medical History Medical History HTN (hypertension) Migraine Rheumatoid arthritis Surgical History Surgical History History of hysterectomy S/P cholecystectomy Family History Family History Mother Unknown family medical history Social History Social History Alcohol intake: never Substance use: never Living arrangements: with family Gender identity (if verbalized by the patient): Female Spiritual care concerns: No Exam Const: General: healthy appearing Nutritional Appearance: well nourished Orientation/consciousness: patient oriented x3 HENMT: Head: normal to inspection Ears: external ears normal Face/ Nose/Sinus: Normal external nose present Eyes: Conjunctivae: conjunctivae normal Pupils: Equal, round and reactive pupils present EOM: EOMs intact bilaterally Neck: Neck: normal visual inspection Chest: Chest palpation & inspection: normal inspection of the chest Resp: Effort & Inspection: normal respiratory effort and not labored Auscultation: clear to auscultation bilaterally and no crackles Cardio: Rate: regular rate Rhythm: regular rhythm Heart sounds: no murmurs GI: Inspection: non-distended GI Palp: Yes Soft to palpation and No Tenderness to palpation present (GI) Auscultation: normal bowel sounds : General: Yes bladder normal to palpation Back/Spine/Pelvis: Back: no CVA tenderness Other: tender right paraspinal muscles to palpation with spasms appreciated; no midline tenderness or step-offs or malalignments Skin: General skin exam: normal color Rashes: no rashes Wounds: no wounds Neuro: General: patient oriented x3 Cranial nerves: Yes Nystagmus not present Speech: normal speech Gait exam (Neuro): Normal gait present Other: No sciatica bilaterally Extrem: General: normal to inspection Psych: Mental Status: mental status grossly normal Affect: normal affect Attitude: cooperative Course Vital Signs Vital signs: Vital Signs Temperature 36.6 C 06/24/24 13:00 Pulse Rate 81 06/24/24 13:00 Respiratory Rate 18 06/24/24 13:00 Blood Pressure 140/64 06/24/24 13:00 Pulse Oximetry 97 06/24/24 13:00 Oxygen Delivery Room Air 06/24/24 13:00 Temperature 36.6 C 06/24/24 13:00 Pulse Rate 81 06/24/24 13:00 Respiratory Rate 18 06/24/24 13:00 Blood Pressure 140/64 06/24/24 13:00 Pulse Oximetry 97 06/24/24 13:00 Oxygen Delivery Room Air 06/24/24 13:00 MDM - Back Pain/Injury MDM Narrative Medical decision making narrative: patient is a 78-year-old female with a fall ground level to the lower back. We will check x-ray at this time lumbar spine. Will give her Toradol and Norflex. Imaging Data Attestation: I personally reviewed and interpreted this imaging study as follows: Radiologist's impression: Lumbar x-ray shows chronic arthritis changes but no acute changes Discharge Plan Discharge Clinical Impression: Lumbago, Rheumatoid arthritis, Lumbar radiculopathy Patient Disposition: Home, Self-Care Condition: Stable Instructions: Acute Low Back Pain (ED), Lumbar Radiculopathy (ED) Prescriptions: New orphenadrine citrate 100 mg tablet extended release 100 mg PO BID PRN (Reason: spasms) Qty: 20 0RF prednisone 20 mg tablet 40 mg PO DAILY 3 Days Qty: 6 0RF No Action metoprolol succinate 50 mg Tablet Extended Release 24 Hr 50 mg PO DAILY hydrochlorothiazide 25 mg Tablet 25 mg PO DAILY hydrocodone-acetaminophen 5-325 mg tablet 1 tablet PO Q8H potassium chloride 20 mEq tablet,ER particles/crystals 20 meq PO TID pravastatin 20 mg tablet 20 mg PO DAILY valsartan 160 mg tablet 160 mg PO DAILY hydroxyzine HCl 25 mg tablet 26 mg PO Q6-12H PRN (Reason: Anxiety) Adult Low Dose Aspirin 81 mg Tablet 81 mg PO DAILY Follow-up/Referrals: Harms,Maximilian Bennett M.D. [Primary Care Provider] - Time of Disposition: 13:43
[2024-06-24] MEDS: ORPHENADRINE CITRATE 100 MG TABLET.ER PO (13:23)
[2024-06-24] MEDS: KETOROLAC (*BKC) 60 MG/2 ML VIAL IM (13:24)
== END 2024-06-24 13:53 | disposition home or self-care (01) ==
PROVIDERS: Emergency Provider Emergency Medicine; PCP Family Medicine
DX: M06.9 Rheumatoid arthritis, unspecified (principal); M54.16 Radiculopathy, lumbar region; I10 Essential (primary) hypertension; Z79.899 Other long term (current) drug therapy; Z79.82 Long term (current) use of aspirin; Z79.891 Long term (current) use of opiate analgesic; W18.30XA Fall on same level, unspecified, initial encounter
CPT/HCPCS: 72100; 96372; 99283; A9270; J1885

== ENCOUNTER 2024-07-02 12:14 | Emergency (ER) | payer MEDICARE, SELFPAY ==
[2024-07-02 12:20] VITALS: BP 155/111; PULSE 69; RESP 20; TEMP 36.7; O2SAT 100
[2024-07-02 12:30] VITALS: BP 155/111; PULSE 69; RESP 20; TEMP 36.7; O2SAT 100
--- NOTE | 2024-07-02 12:59 | ED_ITS ---
HPI - Eye Problem General Chief complaint: Eye Problems Stated complaint: right eye Source: patient Mode of arrival: ambulatory Limitations: no limitations History of Present Illness HPI Narrative: 78-year-old female presented for complaint of right eye irritation. Onset yesterday. She states yesterday the white part of the eye appeared yellow, and she has had a lot of tearing. She denies eye pain, swelling, photophobia, vision changes, dizziness, vomiting or fever. 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 Related Data Home Medications Medication Instructions Recorded Confirmed hydrochlorothiazide 25 mg tablet 25 mg PO DAILY 01/31/21 07/02/24 metoprolol succinate 50 mg 50 mg PO DAILY 01/31/21 07/02/24 tablet,extended release 24 hr hydrocodone 5 mg-acetaminophen 325 1 tablet PO Q8H 03/26/23 07/02/24 mg tablet potassium chloride 20 mEq 20 meq PO TID 03/26/23 07/02/24 tablet,extended release(part/cryst) pravastatin 20 mg tablet 20 mg PO DAILY 03/26/23 07/02/24 valsartan 160 mg tablet 160 mg PO DAILY 03/26/23 07/02/24 aspirin 81 mg tablet 81 mg PO DAILY 06/24/24 07/02/24 hydroxyzine HCl 25 mg tablet 26 mg PO Q6-12H PRN Anxiety 06/24/24 07/02/24 Allergies Allergy/AdvReac Type Severity Reaction Status Date / Time ondansetron [From Zofran] AdvReac Headache Verified 07/02/24 12:28 Review of Systems Review of Systems: CONSTITUTIONAL: Denies body aches, fever, chills EYES:Endorses redness and drainage to right eye, Denies visual changes pain, FB sensation, photophobia ENT: Denies rhinorrhea, congestion, sore throat, or otalgia. CARDIOVASCULAR: Denies chest pain, palpitations SKIN: Denies rash, itching, or wounds. MUSCULOSKELETAL: Denies back pain, joint pain, or myalgia. NEUROLOGIC: Denies headache All systems reviewed & are unremarkable except as noted in HPI and below PMFSH Past Medical History Medical History HTN (hypertension) Migraine Rheumatoid arthritis Surgical History Surgical History History of hysterectomy S/P cholecystectomy Family History Family History Mother Unknown family medical history Social History Social History Alcohol intake: never Substance use: never Living arrangements: with family Gender identity (if verbalized by the patient): Female Spiritual care concerns: No Comments At time of signature, I have reviewed and agree with nursing past medical, surgical, social and family history unless otherwise noted. Please see nursing chart for further information. There is no relevant family history pertinent to the presenting complaint Exam Narrative: GENERAL: Well-appearing EYES: minimal right conjunctival injection, no eye lid swelling/redness. No discharge. PERRLA EOMI. Lid eversion shows no foreign body ENT: Mucous membranes pink and moist. No rhinorrhea. Throat normal. Uvula midline. CHEST: Clear to auscultation. HEART: Regular rate and rhythm. SKIN: Warm, dry, NEURO: alert and oriented x3 Course Course Emergency Course: Patient is aware of diagnosis, understands and agrees to treatment plan. Anticipatory guidance given. Patient agrees to follow-up as directed and is aware of reasons to seek care at the emergency department. Portions of this record may have been created with voice recognition software Level of Care: Express Care Visit Vital Signs Vital signs: Vital Signs Temperature 98.0 F 07/02/24 12:20 Pulse Rate 69 07/02/24 12:20 Respiratory Rate 20 07/02/24 12:20 Blood Pressure 155/111 H 07/02/24 12:20 Pulse Oximetry 100 07/02/24 12:20 Oxygen Delivery Room Air 07/02/24 12:20 Temperature 98.0 F 07/02/24 12:30 Pulse Rate 69 07/02/24 12:30 Respiratory Rate 20 07/02/24 12:30 Blood Pressure 155/111 H 07/02/24 12:30 Pulse Oximetry 100 07/02/24 12:30 Oxygen Delivery Room Air 07/02/24 12:30 MDM - Eye Problem MDM Narrative Medical decision making narrative: Discussed physical exam findings. Advised supportive measures and signs/symptoms to go to the ER. Pt is appropriate for outpt treatment and f/u. Differential Diagnosis Differential diagnosis: Likely corneal abrasion, conjunctivitis, acute iritis and other Discharge Plan Discharge Clinical Impression: Eye irritation Patient Disposition: Home, Self-Care Condition: Stable Instructions: Antibiotic Form, Eye Pain (ED) Additional Instructions: Your blood pressure reading was elevated (above 120/80) please follow-up with your primary care provider for further evaluation and management. If you develop worsening Blood Pressure symptoms, (headache, vision changes, dizziness, vomiting, chest pain, etc) go to the ER. Call 911. Avoid touching or rubbing your eye. Use over the counter lubricating eye drops as needed for irritation Use a warm or cool washcloth on your eye for comfort Use eyedrops as directed Practice good handwashing and hygiene to prevent spread of infection Use new makeup, lashes etc. You may take Tylenol for pain Follow-up with PCP or environmental programs manager if condition is not improving in 2-3days. Go to the emergency room if you have severe pain or pressure behind your eye, difficulty seeing, or other severe symptoms Prescriptions: New ofloxacin 0.3 % drops See Rx Instructions .ROUTE .COMPLEX Qty: 10 0RF Rx Instructions: put 2 drops into right every 4 hours x 2 days, then 2 drops 4 times/day days 3-7 No Action metoprolol succinate 50 mg Tablet Extended Release 24 Hr 50 mg PO DAILY hydrochlorothiazide 25 mg Tablet 25 mg PO DAILY hydrocodone-acetaminophen 5-325 mg tablet 1 tablet PO Q8H potassium chloride 20 mEq tablet,ER particles/crystals 20 meq PO TID pravastatin 20 mg tablet 20 mg PO DAILY valsartan 160 mg tablet 160 mg PO DAILY hydroxyzine HCl 25 mg tablet 26 mg PO Q6-12H PRN (Reason: Anxiety) Adult Low Dose Aspirin 81 mg Tablet 81 mg PO DAILY orphenadrine citrate 100 mg tablet extended release 100 mg PO BID PRN (Reason: spasms) Qty: 20 0RF Follow-up/Referrals: Chi,Maximilian Bennett M.D. [Primary Care Provider] - Time of Disposition: 13:06
== END 2024-07-02 13:10 | disposition home or self-care (01) ==
PROVIDERS: Emergency Provider Nurse Practitioner Family; PCP Family Medicine
DX: H57.11 Ocular pain, right eye (principal); I10 Essential (primary) hypertension; M06.9 Rheumatoid arthritis, unspecified; Z79.899 Other long term (current) drug therapy; Z79.82 Long term (current) use of aspirin; Z79.891 Long term (current) use of opiate analgesic
CPT/HCPCS: 99213; G0463